=== PATIENT | female | born 1955 | race Caucasian/White ===

== ENCOUNTER 2017-03-21 00:09 | Emergency (ER) | payer MEDICARE, MEDICAID ==
[~2017-03-21] VITALS: Ht 162.6 cm; Wt 73.0 kg
[~2017-03-21 00:09] MED LIST: ASPI-1159 PO; ATOR40TA70 PO; LANTUSUD SUBCUT; LIRA0.6P2 SQ; LOSA1TAB34 PO; METF10002 PO; ONDA8TAB6 PO
[2017-03-21] MEDS ORDERED: TETRACAINE 0.5% OPHTH DROPS 4ML OP ONE (05:15)
[2017-03-21 07:47] VITALS: BP 164/61
== END 2017-03-21 09:07 | disposition short-term general hospital (02) ==
LOC: ER 00:12
DX: H54.62 Unqualified visual loss, left eye, normal vision right eye (principal); E11.9 Type 2 diabetes mellitus without complications; I10 Essential (primary) hypertension; Z98.42 Cataract extraction status, left eye; Z98.41 Cataract extraction status, right eye; Z79.82 Long term (current) use of aspirin; Z79.4 Long term (current) use of insulin; Z85.3 Personal history of malignant neoplasm of breast; Z98.890 Other specified postprocedural states
CPT/HCPCS: 99285

== ENCOUNTER 2018-04-29 08:51 | Day surgery (SDC) | payer MEDICARE, MEDICAID ==
[~2018-04-29] VITALS: Ht 147.3 cm; Wt 77.1 kg
[~2018-04-29 08:51] MED LIST changes: +METF-416 PO; -METF10002 PO
[2018-04-29] MEDS ORDERED: LIDOCAINE HCL 1% 20ML VIAL (Pyxis) INJ ONE (09:55)
[2018-04-29] MEDS ORDERED: IODIXANOL 320MG/ML 100 ML BOTTLE IV ONE (09:55)
[2018-04-29] MEDS ORDERED: FENTANYL CITRATE/PF 50MCG/ML 2ML VIAL ONE (10:49)
[2018-04-29] MEDS ORDERED: MIDAZOLAM HCL 2 MG/2 ML VIAL ONE (10:49)
[2018-04-29] MEDS ORDERED: OLME1TAB42 PO (10:55)
[2018-04-29] MEDS ORDERED: METF750T2 PO (10:55)
[2018-04-29] MEDS ORDERED: LIRA0.6P SQ (10:55)
[2018-04-29] MEDS ORDERED: PANT40TA4 PO (10:55)
[2018-04-29] MEDS ORDERED: NITROGLYCERIN 50MCG/ML 10ML VIAL (CATH LAB) IV ONE (14:14)
[2018-04-29] MEDS ORDERED: NICARDIPINE 100MCG/ML 10ML VIAL (CATH LAB) IV ONE (14:14)
== END 2018-04-29 16:30 | disposition home or self-care (01) ==
LOC: CCL 08:51
PROVIDERS: ATTEND Specialist
DX: I25.10 Atherosclerotic heart disease of native coronary artery without angina pectoris (principal); I10 Essential (primary) hypertension; E11.9 Type 2 diabetes mellitus without complications
CPT/HCPCS: 82962; 93458; 99152; 99153; C1769; C1887; C1893; J1644; J2250; J3010; J3490; Q9967; G0500

== ENCOUNTER 2024-07-08 12:57 | Emergency (ER) | payer MEDICARE, MEDICAID ==
[~2024-07-08] VITALS: Ht 152.4 cm; Wt 77.0 kg
[~2024-07-08 12:57] MED LIST changes: -ASPI-1159 PO; +ASPI-1497 PO; +LIRA0.6P SQ; -LIRA0.6P2 SQ; -LOSA1TAB34 PO; -METF-416 PO; +METF750T46 PO; +OLME-24 PO; +PANT40TA51 PO
[2024-07-08 12:59] VITALS: O2SAT 100
[2024-07-08] MEDS: IBUPROFEN 600MG TABLET PO STA (13:42)
[2024-07-08 13:43] LABS: BASOPHILS % 0.6 % (0.0-2.0); HEMATOCRIT. 36.3 % (36.0-48.0); LYMPHOCYTES % 32.9 % (20.0-50.0); MEAN CORPUSCULAR HEMOGLOBIN 30.2 pg (28.0-32.0); MEAN CORPUSCULAR HGB CONC 33.1 g/dL (31.0-37.0); MEAN CORPUSCULAR VOLUME 91.2 fL (81.0-99.0); MEAN PLATELET VOLUME 7.6 fl (7.4-10.4); MONOCYTES % 6.7 % (2.0-8.0); NEUTROPHILS % 56.8 % (40.0-76.0); PLATELET 207 x1000/uL (130-400); RED BLOOD CELL COUNT 3.99 mill/uL (4.2-5.4); RED CELL DISTRIBUTION WIDTH 16.2 % (11.6-14.6); WHITE BLOOD COUNT 4.7 x1000/uL (4.5-11.0)
[2024-07-08] MEDS: SODIUM CHLORIDE 0.9% 1,000 ML IV ONE (13:47)
[2024-07-08 13:52] LABS: INR 1.1; PROTHROMBIN TIME 11.3 sec (9.6-11.0)
[2024-07-08 13:54] LABS: CARBON DIOXIDE 31 mEq/L (21-32); CHLORIDE 107 mEq/L (98-107); POTASSIUM 4.3 mEq/L (3.5-5.1); SODIUM 141 mEq/L (136-145)
[2024-07-08 13:55] LABS: CALCIUM 9.3 mg/dL (8.7-10.4)
[2024-07-08 14:00] LABS: CREATININE 0.8 mg/dL (0.6-1.0); GLUCOSE 98 mg/dL (70-105); UREA NITROGEN BLOOD 14 mg/dL (9-23)
[2024-07-08 14:45] LABS: TROPONIN I HIGH SENSITIVITY 16 ng/L (3.0-34)
[2024-07-08 16:53] VITALS: BP 106/71; PULSE 70; RESP 19; TEMP 36.6; O2SAT 100
== END 2024-07-08 16:58 | disposition home or self-care (01) ==
LOC: ER 12:57
DX: R07.89 Other chest pain (principal); E11.9 Type 2 diabetes mellitus without complications; E78.00 Pure hypercholesterolemia, unspecified; I10 Essential (primary) hypertension; Z79.899 Other long term (current) drug therapy; Z79.85 Long-term (current) use of injectable non-insulin antidiabetic drugs; Z79.4 Long term (current) use of insulin
CPT/HCPCS: 99285; 96360; 71045; 96361; 80048; 83880; 85025; 85610; 84484; 36415; 93005; J7030